=== PATIENT | male | born 1980 | race Caucasian/White ===

== ENCOUNTER 2022-06-06 20:24 | Emergency (ER) | payer OTHER, SELFPAY ==
--- NOTE | ~2022-06-06 | XR_ITS ---
EXAMINATION: XR TIBIA AND FIBULA, LEFT CLINICAL INFORMATION: Trauma, pain COMPARISON: None TECHNIQUE: AP and lateral views of the left tibia and fibula were obtained. FINDINGS: The bones and soft tissues are normal. No fracture. No osseous lesions. XR/XR tibia fibula LT 2V IMPRESSION: Normal left tibia and fibula.
--- NOTE | ~2022-06-06 | US_ITS ---
EXAMINATION: US EXTREMITY NONVASCULAR [LEFT POSTERIOR ANKLE] CLINICAL INFORMATION: Reason for Exam L achillies PAIN COMPARISON: Radiographs performed 06/06/2022 TECHNIQUE: Dynamic, real-time grayscale sonographic evaluation of the left Achilles tendon was performed with images of the right Achilles tendon for comparison. US/US extremity nonvascular FINDINGS/IMPRESSION: Images demonstrate partial, if not complete rupture of the LEFT Achilles tendon with fluid present in the tendon gap and surrounding edema.
[2022-06-06 21:42] VITALS: BP 100/70; PULSE 70; RESP 17; TEMP 37; O2SAT 95; BMI 32.3
[2022-06-06] MEDS: Acetaminophen 325 MG TABLET 650 MG PO (21:45)
--- NOTE | 2022-06-07 00:42 | ED.LOWEXIN ---
HPI - Extremity Injury (Lower) General Chief Complaint: Extremity Injury, Lower Stated Complaint: leg pain Time Seen by Provider: 06/07/22 00:41 Source: patient Mode of arrival: ambulatory Limitations: no limitations History of Present Illness HPI Narrative: 41-year-old male presents to the emergency department with complaints of sudden onset left lower extremity pain from the calf down to the foot, worse around the ankle. Patient tells me he was jumping on his trampoline just prior to arrival and he heard a snap while jumping up. He reports he immediately started experiencing severe pain. He has never had issues with his left lower extremities, no previous surgeries to that lower extremity. When patient hit the ground he did not hit his head, fall or lose consciousness. Patient not on blood thinners. Patient reports excruciating 10/10 pain worse with range of motion, weight-bearing activities better at rest. Patient reports about lower extremity appears swollen after the injury. Denies fevers, chills. Endorses intermittent numbness and tingling. Related Data Previous Rx's Medication Instructions Recorded morphine 15 mg immediate release 15 mg PO BID PRN pain #10 tabs 06/07/22 tablet Allergies Allergy/AdvReac Type Severity Reaction Status Date / Time latex Allergy Hives Verified 06/06/22 21:43 Review of Systems Review of Systems: Constitutional : No Weight loss, No Fever, No Chills, No Fatigue, No Malaise ENT/Mouth : No sore throat, No Rhinorrhea Eyes: No Eye Pain, No Swelling, No Redness Cardiovascular : No Chest Pain, No SOB, No Dyspnea on Exertion, No Orthopnea, No Edema, No Palpitations Respiratory : No Cough, No Sputum, No Wheezing Gastrointestinal : No Nausea, No Vomiting, No Diarrhea, No Constipation, No abdominal Pain, No Hematochezia, No Melena Genitourinary : No Dysuria, No Urinary Frequency, No Hematuria, Musculoskeletal : + joint pain, No Myalgias, + Joint Swelling Skin : No Skin Lesions, No rash Neuro : No Weakness, No Numbness, No Dizziness, No Headache Psych : No Anxiety/Panic, No Depression All other systems reviewed and are negative Yes all other systems are reviewed and are negative [facility] Past Medical History Attestation statement: The following information was validated with the patient. Source: old records reviewed and nursing notes reviewed Social History Social History Advance Directives: No Advance Directives Information Provided: Yes Physical Exam Vital Signs: Vital Signs: Last Vital Signs Temp 98.6 F 06/06/22 21:42 Pulse 70 06/06/22 21:42 Resp 17 06/06/22 21:42 BP 100/70 06/06/22 21:42 Pulse Ox 95 06/06/22 21:42 O2 Del Method 06/06/22 21:42 BMI result Body Mass Index 32.3 vss Appearance: Alert.? Oriented X3.? No acute distress.? Appears uncomfortable. Head: Normocephalic, atraumatic, no step-offs or deformities Eyes: Pupils equal, round and reactive to light.? CVS: Normal heart rate and rhythm.? Pulses normal.? Respiratory: No respiratory distress.? Breath sounds normal.? Abdomen: Soft and nontender.? Skin: Skin warm and dry.? Normal skin color.? Normal skin turgor.? Extremities: 5/5 strength upper extremities and right lower extremity. Decreased strength to left lower extremity secondary to pain Decreased strength to the right ankle secondary to pain. Positive Christopher sign on the left side, negative Christopher sign on the right.. Negative Ayesha sign bilaterally. 2+ dorsalis pedis, posterior tibialis and anterior tibialis pulses equal bilateral. Swelling noted to the left ankle/foot area. Normal right foot. Patient is noted to have a step-off overlying the left Achilles tendon. Back: No midline tenderness, no C-spine tenderness, full range of motion, no CVA tenderness bilaterally Neuro: Oriented X 3.? No motor deficit.? No sensory deficit. CN 2-12 intact. Ambulating w/ limp favoring right side. Course Reevaluation(s) Reevaluation #1: Xray of tib fib nromal. US of achilles pending. Sign out to Dr. Pichardo Time: 01:36 MDM - Extremity Injury (Lower) MDM Narrative Medical decision making narrative: 105 41-year-old male presents with pain to the left lower extremity from the calf down to his foot status post jumping on a trampoline, reports he heard a weird noise. Reports 10/10 pain. Physical examination with 5/5 strength upper extremities and right lower extremity. Decreased strength to left lower extremity secondary to pain Decreased strength to the right ankle secondary to pain. Positive Christopher sign on the left side, negative Christopher sign on the right.. Negative Ayesha sign bilaterally. 2+ dorsalis pedis, posterior tibialis and anterior tibialis pulses equal bilateral. Swelling noted to the left ankle/foot area. Normal right foot. Patient is noted to have a step-off overlying the left Achilles tendon. Normal capillary refill to lower extremities. Neurovascularly intact. Concerns for Achilles tendon rupture, will obtain ultrasound. In place patient in a posterior short leg splint in plantar flexion. Plan Xray Medical Records Attestation: I reviewed the patient's medical records. Lab Data Attestation: I reviewed the patient's lab results. Critical Care Time Critical Care Time Critical Care Time: No Discharge Plan Discharge Clinical Impression: Pain of left calf, Achilles tendon rupture Patient Disposition: Home, Self-Care Instructions: Leg Cramps (ED), R.I.C.E. Treatment (ED), Leg Pain (ED) Additional Instructions: Take your medications as prescribed. If you were prescribed antibiotics today, it is important that you take your medication to their entirety, do not skip any doses, do not finish them early. Follow-up with your primary care provider this week. Return to the emergency department with new or worsening symptoms. Such as fevers, chills, chest pain, shortness of breath, nausea, vomiting, dizziness, headache, vision changes, lethargy In case of emergency call 911 Your x-ray showed no acute findings, pain persist he may require an MRI to further evaluate ligament or tendon injuries. Follow-up with orthopedics if necessary. Please rest, ice, compress and elevate extremity. Return with new or worsening symptoms such as numbness, tingling, severe pain. For [id number] pain you can take ibuprofen every 6 hours, Tylenol every 4 as needed for pain, discomfort. For severe pain you can take morphine as prescribed, do not take more than the exceeded amount. Do not sure this medication with others. Do not she night while taking this medication. You should know that this can cause dependence. Prescriptions: New morphine 15 mg tablet 15 mg PO BID PRN (Reason: pain) Qty: 10 0RF Rx Instructions: Partial Fill upon patient request. Referrals: [facility] [place] [facility] [Provider Group] - 2 weeks Physician,None [Primary Care Provider] - 2 days Stand Alone Forms: Work/School Release
[2022-06-07] MEDS: Morphine Sulfate Immed Release 15 MG TABLET PO (01:44)
--- NOTE | 2022-06-07 03:08 | PC.NURSE ---
Crutches education provided to pt. Pt demonstrated proper use of crutches. Discharge instructions provided to pt. Pt verbalizes understanding.
== END 2022-06-07 03:10 | disposition home or self-care (01) ==
PROVIDERS: Emergency Provider Internal Medicine; PCP Internal Medicine
DX: M79.605 Pain in left leg (principal); R60.0 Localized edema; Z79.899 Other long term (current) drug therapy
CPT/HCPCS: 73590; 76882; 99283; 99284

== ENCOUNTER → 2022-06-09 15:45 | Outpatient (BNVA) | payer OTHER, SELFPAY | PROVIDERS: PCP Internal Medicine; Visit Provider Physician Assistant | DX: S86.012A Strain of left Achilles tendon, initial encounter (principal) | CPT/HCPCS: 99202 ==

== ENCOUNTER 2022-06-17 17:20 | Emergency (ER) | payer OTHER, SELFPAY ==
[2022-06-17 17:43] VITALS: BP 122/70; PULSE 72; RESP 20; TEMP 36.9; O2SAT 95; BMI 32.3
--- NOTE | 2022-06-17 18:58 | ED_ITS ---
HPI - General Adult General Chief complaint: Extremity Problem Stated complaint: swollen L leg Time Seen by Provider: 06/17/22 18:58 Source: patient Mode of arrival: ambulatory Limitations: no limitations History of Present Illness HPI narrative: Patient is a 42 year old assigned male at with a history of a ruptured left Achilles tendon presenting to the emergency department today with left leg pain. Patient states that he ruptured his left Achilles tendon on 06/07 and he has been having pain ever since. Patient states that he is going to have surgery on it next week. Patient states that he was in the shower and slipped and is now having increased pain in the left leg. Patient denies any dizziness, lightheadedness, abdominal pain, nausea, vomiting, fever, chills, blurry vision, double vision, loss of vision, chest pain, difficulty breathing, shortness of breath, back pain, night sweats, pain with urination, increased urinary frequency, increased urinary urgency, blood in his urine or stool, syncope or a near syncopal episode, bowel incontinence, bladder incontinence, bowel retention, bladder retention, or any other complaints at this time. Onset (ago): hour(s) Location: left and lower extremity Radiation: non-radiation Severity: moderate Severity scale (1-10): 4 Quality: aching Pain Consistency: constant Relieving factors: none Exacerbating factors: movement Associated symptoms: denies other symptoms Treatments prior to arrival: none Related Data Previous Rx's Medication Instructions Recorded morphine 15 mg immediate release 15 mg PO BID PRN pain #10 tabs 06/07/22 tablet tramadol 50 mg tablet 50 mg PO BEDTIME 7 days #7 tabs 06/17/22 Allergies Allergy/AdvReac Type Severity Reaction Status Date / Time latex Allergy Hives Verified 06/06/22 21:43 Review of Systems Constitutional: Constitutional: Reports no additional constitutional complaints, Denies chills, Denies fever(s) and Denies night sweats Eyes: Eyes: Reports no additional eye complaints, Denies blurry vision, Denies change in vision, Denies diplopia, Denies eye discharge, Denies loss of vision and Denies eye pain ENT: Denies dizziness Cardiovascular: Cardiovascular: Reports no additional cardiovascular complaints, Denies chest pain, Denies lightheadedness, Denies Loss of Consciousness and Denies dyspnea Respiratory: Respiratory: Reports no additional respiratory complaints and Denies dyspnea Gastrointestinal: Gastrointestinal: Reports no additional gastrointestinal complaints, Denies abdominal pain, Denies melena, Denies hematochezia, Denies change in bowel habits and Denies change in stool character Genitourinary: Genitourinary: Reports no additional male genitourinary complaints, Denies hematuria, Denies oliguria, Denies difficulty urinating, Denies dysuria, Denies urinary frequency, Denies urinary hesitancy, Denies ur inary incontinence and Denies urinary urgency Musculoskeletal: Musculoskeletal: Reports no additional musculoskeletal complaints, Denies numbness and Denies tingling Comments: left lower leg pain Neurologic: Denies dizziness, Denies loss of vision, Denies numbness and Denies tingling Psychiatric: Psychiatric: Reports no additional psychiatric complaints Endocrine: Endocrine: Reports no additional endocrine complaints Hematologic/Lymphatic: Hematologic/Lymphatic: Reports no additional hematologic/lymphatic complaints Allergic/Immunologic: Allergic/Immunologic: Reports no additional allergic/immunologic complaints PMFSH Past Medical History Attestation statement: The following information was validated with the patient. Source: old records reviewed Social History Social History Advance Directives: No Advance Directives Information Provided: No Physical Exam ED Vital Signs: Vital Signs - 24 hr 06/17/22 17:43 06/17/22 19:54 Temperature 98.5 F Pulse Rate 72 65 Respiratory Rate 20 17 Blood Pressure 122/70 136/74 Pulse Oximetry 95 97 Oxygen Delivery Method Room Air Room Air BMI result Body Mass Index 32.3 Const General: cooperative, no acute distress, alert and awake Nutritional Appearance: well nourished Orientation/consciousness: patient oriented x3 Limitations: no limitations [facility] Head: Yes normal to inspection and Yes atraumatic Ears: hearing grossly normal bilaterally and external ears normal General nose exam: Normal external nose present, no nasal discharge noted and no epistaxis Face and sinus: Yes normal facial exam, No abrasion and No laceration Mouth: Normal oral and palatal mucosa present, no drooling and no muffled voice Eyes General: appearance normal, both eyes and all related structures Periorbital: periorbital findings normal Eyelids: Yes eyelids normal Conjunctivae: conjunctivae normal Pupils: Equal, round and reactive pupils present EOM: EOMs intact bilaterally Neck Neck: Yes normal visual inspection, Yes full ROM and Yes no lymphadenopathy Chest Chest palpation & inspection: normal inspection of the chest Resp Effort & Inspection: normal respiratory effort and able to speak in complete sentences Auscultation: clear to auscultation bilaterally Cardio Rate: regular rate Rhythm: regular rhythm GI Inspection: Yes normal to inspection Neuro General: patient oriented x3 and moves all extremities Cranial nerves: Yes Equal, round and reactive pupils present Cognition (Neuro): normal cognition Motor exam (neuro): 5/5 motor strength present throughout Sensory Exam: Normal double simultaneous stimulation for sensation Coordination: [id number] test normal Extrem Other: left lower leg ROM restricted secondary to pain General: Yes normal to inspection and Yes capillary refill normal Psych Appearance: grossly normal Mental Status: mental status grossly normal Affect: normal affect Attitude: cooperative Thought process: Normal thought process present Thought content: Normal thought content present Insight: Good insight present (Psych) Medical Decision Making MDM Narrative Medical decision making narrative: Patient is a 42 year old assigned male at with a history of a ruptured left achilles tendon presenting to the emergency department today with left lower leg pain. Patient's physical exam showed restricted ROM of the left lower leg secondary to pain. I spoke to the orthopedic provider school commissioner who informed me that the patient opted OUT of surgery and is NOT scheduled to have it done however, he is calling the office repeatedly demanding more pain medication. Patient was given a prescription for Tramadol earlier today by their office. I explained my physical exam findings to the patient. I answered all questions asked by the patient. I stressed the importance of the patient taking his medication as prescribed. I stressed the importance of the patient following up with his primary care provider and orthopedics. I stressed the importance of the patient returning to the emergency department immediately if his symptoms were to worsen or if he were to develop any dizziness, shortness of breath, difficulty breathing, chest pain, blurry vision, loss of vision, nausea, vomiting, abdominal pain, fever, chills, back pain, or any other complaints. Patient verbalized agreement and understanding with this treatment plan and discharge. Medical Records Medical records reviewed: Yes I reviewed the patient's medical records. Discharge Plan Discharge Clinical Impression: Left leg pain Patient Disposition: Home, Self-Care Instructions: Leg Pain (ED) Additional Instructions: Follow up with your primary care provider and your orthopedic provider. Return to the emergency department immediately if your symptoms worsen or if you develop any dizziness, shortness of breath, difficulty breathing, chest pain, blurry vision, loss of vision, nausea, vomiting, abdominal pain, fever, chills, back pain, or any other complaints. Prescriptions: No Action tramadol 50 mg tablet 50 mg PO BEDTIME 7 Days Qty: 7 0RF morphine 15 mg tablet 15 mg PO BID PRN (Reason: pain) Qty: 10 0RF Rx Instructions: Partial Fill upon patient request. Referrals: [facility] [place] Family Medicine [Provider Group] (Call to establish and follow up with a primary care provider. If you already have a primary care provider, please follow up with them. ) [facility] [place] Primary Care, Monica [Provider Group] (Call to establish and follow up with a primary care provider. If you already have a primary care provider, please follow up with them. ) [facility] [place] Primary CareZenaida [Provider Group] (Call to establish and follow up with a primary care provider. If you already have a primary care provider, please follow up with them. ) Stand Alone Forms: Work/School Release Interventions: ED Discharge Assessment Last Done: 06/17/22 20:02 Discharge Date/Time: 06/17/22 20:02 Print Language: Upper Sorbian
[2022-06-17 19:54] VITALS: BP 136/74; PULSE 65; RESP 17; O2SAT 97
== END 2022-06-17 20:02 | disposition home or self-care (01) ==
PROVIDERS: Emergency Provider Emergency Medicine Emergency Medical Services
DX: R60.0 Localized edema (principal); Z79.899 Other long term (current) drug therapy
CPT/HCPCS: 99282; 99283

== ENCOUNTER 2022-06-21 18:16 | Emergency (ER) | payer OTHER, SELFPAY ==
[2022-06-21 18:27] VITALS: BP 122/68; PULSE 81; RESP 18; TEMP 37.2; O2SAT 98; BMI 32.3
--- NOTE | 2022-06-21 18:40 | ED.LOWEXIN ---
HPI - Extremity Injury (Lower) General Chief Complaint: Extremity Injury, Lower Stated Complaint: L Leg pain Time Seen by Provider: 06/21/22 18:44 Source: patient Mode of arrival: ambulatory Limitations: no limitations History of Present Illness HPI Narrative: 41-year-old male with no significant medical history presents to the emergency department with pain to his left lower extremity. Patient was diagnosed with a ruptured Achilles on 06/07/2022 and since then he has been experiencing pain in the Achilles region, reporting intermittent numbness and tingling and pain particularly with ambulation and weight-bearing. Patient reports that he saw orthopedics and they mention to him that there was a possibility for surgery he is coming in today because the pain is intolerable, he tells me he feels like it is not getting better and he is unable to walk. He tells me he is now considering surgery. Reports severe 10/10 pain constantly, worse with ambulation better at rest. Patient tells me he is supposed to be in a boot however he took it off because it is uncomfortable to walk in. Patient currently taking tramadol however he tells me it is not getting better. Patient denies calf pain, shortness of breath, chest pain, loss of temperature, current numbness or tingling, fevers, chills, weakness, dizziness, headache. He denies any new trauma to the area. He arrives able to take a few steps limping favoring his right side. Related Data Previous Rx's Medication Instructions Recorded morphine 15 mg immediate release 15 mg PO BID PRN pain #10 tabs 06/07/22 tablet tramadol 50 mg tablet 50 mg PO BEDTIME 7 days #7 tabs 06/17/22 Allergies Allergy/AdvReac Type Severity Reaction Status Date / Time latex Allergy Hives Verified 06/06/22 21:43 Review of Systems Review of Systems: Constitutional : No Weight loss, No Fever, No Chills, No Fatigue, No Malaise ENT/Mouth : No sore throat, No Rhinorrhea Eyes: No Eye Pain, No Swelling, No Redness Cardiovascular : No Chest Pain, No SOB, No Dyspnea on Exertion, No Orthopnea, No Edema, No Palpitations Respiratory : No Cough, No Sputum, No Wheezing Gastrointestinal : No Nausea, No Vomiting, No Diarrhea, No Constipation, No abdominal Pain, No Hematochezia, No Melena Genitourinary : No Dysuria, No Urinary Frequency, No Hematuria, Musculoskeletal : + joint pain, No Myalgias, + Joint Swelling Skin : No Skin Lesions, No rash Neuro : No Weakness, No Numbness, No Dizziness, No Headache Psych : No Anxiety/Panic, No Depression All other systems reviewed and are negative Yes all other systems are reviewed and are negative [facility] Past Medical History Attestation statement: The following information was validated with the patient. Source: old records reviewed and nursing notes reviewed Social History Social History Advance Directives: No Advance Directives Information Provided: No Physical Exam Vital Signs: Vital Signs: Last Vital Signs Temp 98.9 F 06/21/22 18:27 Pulse 81 06/21/22 18:27 Resp 18 06/21/22 18:27 BP 122/68 06/21/22 18:27 Pulse Ox 98 06/21/22 18:27 O2 Del Method 06/21/22 18:27 BMI result Body Mass Index 32.3 vss Appearance: Alert.? Oriented X3.? No acute distress.? Head: Normocephalic, atraumatic, no step-offs or deformities Eyes: Pupils equal, round and reactive to light.? Neck: Normal inspection.? Neck supple.? CVS: Normal heart rate and rhythm.? Pulses normal.? Respiratory: No respiratory distress.? Breath sounds normal.? Abdomen: Soft and nontender.? Skin: Skin warm and dry.? Normal skin color.? Normal skin turgor.? Extremities:5/5 strength upper extremities and right lower extremity.? Decreased strength to left lower extremity secondary to pain? Decreased strength to the right ankle secondary to pain.? Positive Christopher sign on the left side, negative Christopher sign on the right..? Negative Ayesha sign bilaterally.? 2+ dorsalis pedis, posterior tibialis and anterior tibialis pulses equal bilateral.? Swelling noted to the left ankle/foot area.? Normal right foot.? Patient is noted to have a step-off overlying the left Achilles tendon. Normal color to b/l lower extremities, monofiliment test intact to b/l lower extremities. Neuro: Oriented X 3.? No motor deficit.? No sensory deficit. CN 2-12 intact Course Reevaluation(s) Reevaluation #1: I did reach out to Orthopedics and spoke to Aileen Odom PA-C discussed case with her and she tells me that patient has now come to the emergency department on 2 separate occasions requesting pain medicine. He decided to be nonsurgical, he was educated on his condition and told when he needed to make a decision about surgery however patient is past the deadline. Patient declines surgery and it is now far outside the time frame for repair. Patient should be advised to follow-up with orthopedics on an outpatient basis. In follow-up with PCP. I will give patient Toradol for. Advised to follow up with new or worsening symptoms. Educated on worrisome signs and symptoms and when to return. Time: 18:37 MDM - Extremity Injury (Lower) MDM Narrative Medical decision making narrative: 1850 42-year-old male presents with pain to his left lower extremity from his ankle down to his foot, known to have a left Achilles tendon rupture currently being followed by the Orthopedic team. Patient reports increasing pain and he tells me he would now want surgery. Upon chart review it is noted that patient saw orthopedics on 06/09/2022 where non operative management versus surgery was discussed, patient decided on non operative management and did not want surgery, he was told to reach out to them in a timely manner if he did want surgery however patient did not reach out to them for surgery he presents here today wanting surgery since his pain is not resolving. Upon chart review it is also noted the patient is currently being treated with tramadol 50 mg p.o. at bedtime was given a 7 day supply on 06/17/2022. Patient was advised to follow-up with the orthopedic team. Patient was discharged with a boot, weight-bearing as tolerated and was told to follow-up in 6 weeks with the orthopedic team. Patient is not compliant with boot Upon physical examination 5/5 strength upper extremities and right lower extremity.? Decreased strength to left lower extremity secondary to pain? Decreased strength to the right ankle secondary to pain.? Positive Christopher sign on the left side, negative Christopher sign on the right..? Negative Ayesha sign bilaterally.? 2+ dorsalis pedis, posterior tibialis and anterior tibialis pulses equal bilateral.? Swelling noted to the left ankle/foot area.? Normal right foot.? Patient is noted to have a step-off overlying the left Achilles tendon.. Plan at this time is to reach out to the orthopedic team. No signs of DVT or arterial occlusion on exam. No signs of compartment syndrome. No signs of neurovascular compromise. Medical Records Attestation: I reviewed the patient's medical records. Lab Data Attestation: I reviewed the patient's lab results. Critical Care Time Critical Care Time Critical Care Time: Yes Total Critical Care Time: 35 Attestation: I attest to this time spent taking care of the patient, obtaining history, physical, reviewing labs, imaging, speaking to my attending, speaking to specialist. Discharge Plan Discharge Clinical Impression: Rupture of left Achilles tendon Patient Disposition: Home, Self-Care Instructions: Achilles Tendon Rupture (ED), R.I.C.E. Treatment (ED), Tendon Rupture (ED) Additional Instructions: Take your medications as prescribed. If you were prescribed antibiotics today, it is important that you take your medication to their entirety, do not skip any doses, do not finish them early. Follow-up with your primary care provider this week. Follow-up with ortho. Return to the emergency department with new or worsening symptoms. Such as fevers, chills, chest pain, shortness of breath, nausea, vomiting, dizziness, headache, vision changes, lethargy, numbness, tingling, inability to feel your lower extremity, inability did differentiate between temperatures, severe pain. In case of emergency call 911 [address] your orthopedic walking device as prescribed. Prescriptions: No Action tramadol 50 mg tablet 50 mg PO BEDTIME 7 Days Qty: 7 0RF morphine 15 mg tablet 15 mg PO BID PRN (Reason: pain) Qty: 10 0RF Rx Instructions: Partial Fill upon patient request. Referrals: [facility] [Provider Group] - 3 days Physician,Unknown J [Primary Care Provider] - 3 days Stand Alone Forms: Work/School Release
[2022-06-21] MEDS: Ketorolac Tromethamine 15 MG/ML VIAL 30 MG IM (19:07)
== END 2022-06-21 19:10 | disposition home or self-care (01) ==
PROVIDERS: Emergency Provider Student in an Organized Health Care Education/Training Program
DX: S86.012A Strain of left Achilles tendon, initial encounter (principal); X58.XXXA Exposure to other specified factors, initial encounter; Y93.9 Activity, unspecified; Y92.9 Unspecified place or not applicable; Y99.9 Unspecified external cause status
CPT/HCPCS: 96372; 99283; 99284; J1885

== ENCOUNTER 2022-07-01 19:53 | Emergency (ER) | payer OTHER, SELFPAY ==
[2022-07-01 20:10] VITALS: BP 119/74; PULSE 75; RESP 18; TEMP 36.3; O2SAT 100; BMI 32.3
[2022-07-01 22:43] VITALS: BP 114/70; PULSE 68; RESP 18; O2SAT 98
[2022-07-01 23:01] VITALS: BP 119/74; PULSE 78; RESP 18; TEMP 36.8; O2SAT 98
[2022-07-01 23:04] VITALS: PULSE 78; RESP 18; TEMP 36.8; O2SAT 98
--- NOTE | 2022-07-02 00:41 | ED.GENADULT ---
HPI - General Adult General Chief complaint: Extremity Injury, Lower Stated complaint: left leg swollen Time Seen by Provider: 07/01/22 23:33 Source: patient Mode of arrival: ambulatory History of Present Illness HPI narrative: 42-year-old male with history and clinical presentation of persistent left lower extremity pain and known Achilles tendon rupture for which he continues to not wear the recommended walking boot because he ?does not like to?. Patient states that it has gotten warm and red. But denies any fever or chills. Related Data Previous Rx's Medication Instructions Recorded morphine 15 mg immediate release 15 mg PO BID PRN pain #10 tabs 06/07/22 tablet tramadol 50 mg tablet 50 mg PO BEDTIME 7 days #7 tabs 06/17/22 Allergies Allergy/AdvReac Type Severity Reaction Status Date / Time latex Allergy Hives Verified 06/06/22 21:43 Review of Systems Review of Systems: Pertinent positives and negatives as stated in HPI 10 point review of systems is otherwise negative. PMFSH Past Medical History Source: nursing notes reviewed Social History Social History Advance Directives: No Advance Directives Information Provided: Yes Physical Exam ED Vital Signs: Vital Signs - 24 hr 07/01/22 20:10 07/01/22 22:43 07/01/22 23:01 Temperature 97.4 F 98.2 F Pulse Rate 75 68 78 Respiratory Rate 18 18 18 Blood Pressure 119/74 114/70 119/74 Pulse Oximetry 100 98 98 Oxygen Delivery Method Room Air Room Air Room Air 07/01/22 23:04 Temperature 98.2 F Pulse Rate 78 Respiratory Rate 18 Blood Pressure Pulse Oximetry 98 Oxygen Delivery Method Room Air BMI result Body Mass Index 32.3 VITAL SIGNS: Reviewed. GENERAL: Well developed, well nourished, in no acute distress. HEAD: Normocephalic/atraumatic EYES: PERRLA, EOMI EARS: Ext canals without abnormality OROPHARYNX: no oral lesions noted, posterior pharynx clear LUNGS: Normal breath sounds. No adventitious sounds or accessory muscle use. SpO2<98> CARDIOVASCULAR: Regular rate and rhythm without noted murmurs ABDOMEN: Soft, non-tender, non-distended with bowel sounds. MUSCULOSKELETAL: No tenderness, deformities, or effusions noted on gross inspection. EXTREMITIES: No cyanosis, clubbing or edema; LLE: Mild edema with erythema but good palpable DP/PT, good capillary refill and sensation is intact. SKIN: Inspection of the skin reveals no rashes NEUROLOGIC: Alert and oriented x 4. Strength and sensation to light touch were grossly intact x 4. Course Course Course Narrative: 42-year-old male with history and clinical presentation of Achilles injury and patient is presenting for request of pain medication but continues to have poor compliance with wearing the leg brace/walking boot. Just informed that the patient has eloped. Discharge Plan Discharge Clinical Impression: Leg pain, Rupture of left Achilles tendon Patient Disposition: Elopement Instructions: Leg Pain (ED) Additional Instructions: Please follow-up with orthopedics as scheduled. Prescriptions: No Action tramadol 50 mg tablet 50 mg PO BEDTIME 7 Days Qty: 7 0RF morphine 15 mg tablet 15 mg PO BID PRN (Reason: pain) Qty: 10 0RF Rx Instructions: Partial Fill upon patient request.
--- NOTE | 2022-07-02 01:18 | PC.NURSE ---
When I went to assess the patient he was not in his bed. Multiple [facility] staff went in search of patient to see if he was possibly in the restroom, waiting area, some other area of the ED. Security stated they were able to identify the patient on [facility] security cameras and that the patient had indeed left the premises.
== END 2022-07-02 01:21 | disposition left against medical advice (07) ==
PROVIDERS: Emergency Provider Student in an Organized Health Care Education/Training Program
DX: R60.0 Localized edema (principal); M79.605 Pain in left leg
CPT/HCPCS: 99282; 99283

== ENCOUNTER → 2022-07-07 15:33 | Outpatient (BNVA) | payer OTHER, SELFPAY | PROVIDERS: Visit Provider Physician Assistant | DX: S86.012A Strain of left Achilles tendon, initial encounter (principal); X58.XXXA Exposure to other specified factors, initial encounter; Y93.9 Activity, unspecified; Y92.9 Unspecified place or not applicable; Y99.8 Other external cause status | CPT/HCPCS: 99212 ==

== ENCOUNTER → 2022-09-01 14:13 | Outpatient (BNVA) | payer OTHER, SELFPAY | PROVIDERS: Visit Provider Physician Assistant | DX: S86.012A Strain of left Achilles tendon, initial encounter (principal) | CPT/HCPCS: 99212 ==

== ENCOUNTER 2023-08-01 20:39 | Emergency (ER) | payer OTHER, SELFPAY ==
--- NOTE | ~2023-08-01 | XR_ITS ---
EXAMINATION: THORACIC SPINE, LUMBAR SPINE CLINICAL INFORMATION: Fall with pain COMPARISON: None available. TECHNIQUE: 3 views thoracic spine, 3 views lumbar spine FINDINGS: Thoracic spine appears unremarkable. The vertebral body heights and disc spaces are well preserved. No paravertebral soft tissue abnormalities are seen. No fractures or subluxations. Degenerative changes are present in the lumbosacral spine probably at L4-L5 and L5-S1 where there is mild disc space narrowing. Vertebral body heights are well-maintained. No fractures or subluxations. XR/XR lumbar spine 2-3V IMPRESSION: No evidence of an acute traumatic injury. Degenerative changes in the lumbosacral spine as described above.
--- NOTE | ~2023-08-01 | XR_ITS ---
EXAMINATION: THORACIC SPINE, LUMBAR SPINE CLINICAL INFORMATION: Fall with pain COMPARISON: None available. TECHNIQUE: 3 views thoracic spine, 3 views lumbar spine FINDINGS: Thoracic spine appears unremarkable. The vertebral body heights and disc spaces are well preserved. No paravertebral soft tissue abnormalities are seen. No fractures or subluxations. Degenerative changes are present in the lumbosacral spine probably at L4-L5 and L5-S1 where there is mild disc space narrowing. Vertebral body heights are well-maintained. No fractures or subluxations. XR/XR thoracic spine 2V IMPRESSION: No evidence of an acute traumatic injury. Degenerative changes in the lumbosacral spine as described above.
--- NOTE | ~2023-08-01 | CT_ITS ---
EXAMINATION: CT ABDOMEN AND PELVIS WITH CONTRAST CLINICAL INFORMATION: Right flank pain and tenderness. COMPARISON: None available. TECHNIQUE: Multidetector volumetric images were obtained from the superior aspect of the liver through the pubic symphysis following administration 85 mL of Omnipaque 350 intravenous contrast. Sagittal and coronal reformatted images were obtained on the technologist's workstation. Oral contrast: No This CT examination was performed using dose optimization techniques as appropriate, variously including the following: *Automated exposure control *Adjustment of mA and/or kV according to patient size (this includes techniques or standardized protocols for targeted exams where dose is matched to indication/reason for exam; i.e. extremities or head) *Use of iterative reconstruction technique DLP: 782 mGy-cm FINDINGS: LUNG BASES: Pleuroparenchymal scarring in the right lower lobe. LIVER, GALLBLADDER, AND BILIARY TREE: The liver is normal in size, shape, and attenuation. No focal hepatic lesion or biliary ductal dilatation is present. The gallbladder is unremarkable with no evidence of radiopaque gallstones, gallbladder wall thickening, or obvious pericholecystic inflammatory changes. PANCREAS: Unremarkable. SPLEEN: Unremarkable. ADRENAL GLANDS: Unremarkable. KIDNEYS AND URETERS: The kidneys are normal in size, shape, and attenuation. Subcentimeter simple cyst in the left kidney is benign. No follow-up imaging recommended. There is a subcentimeter hypodensity lower pole of the right kidney which is too small to characterize, but of doubtful clinical significance. No hydronephrosis, hydroureter, or calculi seen. No perinephric stranding. BLADDER: Unremarkable. GASTROINTESTINAL TRACT: The small and large bowel are unremarkable. The appendix is unremarkable. ABDOMINAL WALL: No significant hernia is appreciated. LYMPH NODES: Normal. VASCULAR: Unremarkable. PELVIC VISCERA: Unremarkable. OSSEOUS STRUCTURES: No acute or suspicious osseous abnormalities. L5 lumbosacral transitional vertebra with rudimentary disc at L5-S1. There is a diffuse disc bulge at L4-L5 and endplate osteophytes which leads to at least moderate bilateral foraminal narrowing at this level. CT/CT abdomen pelvis w IV con IMPRESSION: No acute findings within the abdomen or pelvis to explain the patient's symptomatology.
--- NOTE | ~2023-08-01 | CT_ITS ---
EXAMINATION: CT HEAD WITHOUT CONTRAST CT CERVICAL SPINE WITHOUT CONTRAST CLINICAL INFORMATION: Fall, intoxicated. COMPARISON: None TECHNIQUE: Contiguous axial imaging was performed from the skull base to vertex without intravenous administration of contrast. Contiguous axial imaging was performed from the upper chest through the skull base without intravenous administration of contrast. Coronal and sagittal reformats were obtained at the acquisition workstation. This CT examination was performed using dose optimization techniques as appropriate, variously including the following: *Automated exposure control *Adjustment of mA and/or kV according to patient size (this includes techniques or standardized protocols for targeted exams where dose is matched to indication/reason for exam; i.e. extremities or head) *Use of iterative reconstruction technique DLP: 749 and 674 mGy-cm FINDINGS: Head: There is no evidence of acute intracranial hemorrhage or edematous territorial infarction. A few foci of hypoattenuation in the periventricular and deep white matter are consistent with mild microangiopathy. Garza-white matter differentiation is preserved. The ventricles are normal in size and configuration. No evidence for obstructive hydrocephalus. No abnormal mass effect or midline shift. No extra-axial fluid collections. Age indeterminate nondisplaced nasal alae fractures. Mild mucosal thickening of the paranasal sinuses. No air-fluid level. The mastoids and middle ear cavities are clear. Cervical Spine: The atlantooccipital and atlantoaxial articulations remain well aligned. Straightening of the normal cervical lordosis. Otherwise, there is anatomic alignment of the vertebral bodies and posterior elements. No evidence of acute fracture or subluxation. Minimal multilevel cervical spondylosis. There is no prevertebral soft tissue swelling. The thyroid gland and remaining cervical soft tissues are normal in appearance. The lung apices demonstrate no abnormalities. CT/CT cervical spine wo IV con IMPRESSION: 1. No acute intracranial pathology. 2. No acute cervical spinal fractures or malalignment. 3. Age-indeterminate nondisplaced nasal alae fractures. Correlate with physical examination.
[2023-08-01 20:51] VITALS: BP 155/77; PULSE 80; RESP 18; TEMP 36.6; O2SAT 94
[2023-08-01 21:00] VITALS: BP 132/80; BP 136/63; PULSE 74; PULSE 89; RESP 18; TEMP 36.8; O2SAT 96; O2SAT 97; BMI 35.0
[2023-08-01 22:59] LABS: MANUAL DIFF FLAG NO
[2023-08-01 23:00] LABS: Basophils Absolute Auto 0.1 X10*3/uL (0.0-0.2); Basophils Percent Auto 0.8 % (0-2); Eosinophils Absolute Auto 0.2 X10*3/uL (0.0-0.4); Eosinophils Percent Auto 1.7 % (0-4); Hematocrit 38.4 % (42.0-52.0); Hemoglobin 12.1 g/dl (14.0-18.0); Imm Gran Abs Auto 0.03 X10*3/uL (0.00-0.03); Imm Gran Pct Auto 0.2 % (0.0-0.4); Lymphocytes Absolute Auto 2.6 X10*3/uL (1.2-4.9); Lymphocytes Percent Auto 21.5 % (20-40); Mean Corpuscular HGB Conc 31.5 g/dl (31.0-36.0); Mean Corpuscular Hemoglobin 28.4 pg (27.0-33.0); Mean Corpuscular Volume 90.1 fL (80.0-98.0); Mean Platelet Volume 9.3 fL (9.4-12.4); Monocytes Absolute Auto 0.8 X10*3/uL (0.1-1.2); Monocytes Percent Auto 6.4 % (2-11); Neutrophils Absolute Auto 8.3 x10*3/uL (2.0-8.3); Neutrophils Percent Auto 69.4 % (45-73); Platelet Count 304 X10*3/uL (160-400); Red Blood Count 4.26 X10*6/uL (4.60-5.80); Red Cell Distribution Width 14.7 % (11.0-16.0)
[2023-08-01 23:12] LABS: Ethanol < 10 mg/dL
[2023-08-01 23:15] LABS: Alanine Aminotransferase 15 U/L (0-40); Albumin Level 3.9 g/dL (3.5-5.0); Alkaline Phosphatase 75 U/L (39-117); Anion Gap 11 (12-20); Aspartate Amino Transferase 19 U/L (5-37); Bilirubin Total 0.3 mg/dL (0.0-1.0); Blood Urea Nitrogen 14 mg/dL (9-16); Calcium 9.3 mg/dL (8.4-10.2); Carbon Dioxide 24 mmol/L (22-29); Chloride 108 mmol/L (96-108); Creatinine Clr Calc Pharmacy 124.9; Estimated Glomerular Filt Rate > 60; Glucose Random 92 mg/dL (60-115); Sodium 139 mmol/L (135-145); Total Protein 7.1 g/dL (6.5-8.0)
[2023-08-01 23:43] VITALS: BP 127/71; PULSE 68; RESP 16; O2SAT 94
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
[2023-08-02 01:06] LABS: Amphetamine Screen Urine Not Detected (Not Detect); Barbiturates, Urine Not Detected (Not Detect); Benzodiazepines Screen Urine Not Detected (Not Detect); Cannabinoid Screen Urine POSITIVE (Not Detect); Cocaine Screen Urine Not Detected (Not Detect); Fentanyl, urine POSITIVE (Not Detect); Opiate Screen Urine Not Detected (Not Detect); Phencyclidine Screen Urine POSITIVE (Not Detect)
[2023-08-02] MEDS: Morphine Sulfate 4 MG/ML CARTRIDGE IVPUSH (01:26)
[2023-08-02] MEDS: 0.9 % Sodium Chloride 1,000 ML 999 ML IV (01:27)
[2023-08-02] MEDS: iohexoL 350 MG/ML 100 ML INFUS..BTL 85 ML IV (02:04)
[2023-08-02 02:08] VITALS: BP 131/80; PULSE 70; RESP 16; TEMP 36.7; O2SAT 98
[2023-08-02] MEDS: Ketorolac Tromethamine 15 MG/ML VIAL IVPUSH (03:32)
== END 2023-08-02 06:02 | disposition home or self-care (01) ==
PROVIDERS: Emergency Provider Emergency Medicine
DX: M54.50 Low back pain, unspecified (principal); Z91.81 History of falling; Z79.899 Other long term (current) drug therapy
CPT/HCPCS: 36415; 70450; 72070; 72100; 72125; 74177; 80053; 80307; 85025; 96374; 96375; 99284; 99285; J1885; J2270; Q9967